=== PATIENT | male | born 1940 | race Caucasian/White ===

== ENCOUNTER → 2017-09-14 | Outpatient (CLI) | payer OTHER ==
[~2017-09-14] MED LIST: METO25 PO; MEVA40TA6 PO; OCUV PO; OMEP20TA39 PO; PARO20TA PO; TERA2CAP3 PO
== END ==
LOC: HRSP 14:23
PROVIDERS: ATTEND Internal Medicine
DX: R06.02 Shortness of breath (principal)
CPT/HCPCS: 94060; 94618; 94726; 94729; 95012